=== PATIENT | male | born 1995 | race Caucasian/White ===

== ENCOUNTER 2019-08-19 18:18 | Emergency (ER) | payer OTHER, SELFPAY ==
[2019-08-19 18:19] VITALS: BP 166/96; PULSE 87; RESP 16; TEMP 36.6; O2SAT 98; BMI 30.7
--- NOTE | 2019-08-19 21:04 | CM.ED ---
Addendum entered by Keri Chacon 08/19/19 22:07: Reviewed and approved ASSOCIATION EXECUTIVE student documentation. Farhat Chacon ASSOCIATION EXECUTIVE, INTERNET MARKETING CONSULTANT Original Note: Social Work Consult: Anxiety Informant: Dr. Chacon Chief Complaint: Patient stating to feel anxious and may be addicted to Xanax. Patient inquiring about resources. Marital Status: Single. Living Situation: Patient stating to live on my own. Patient stating that patient's girlfriend lives with patient. Patient stating to feel safe at home with patient's girlfriend. Support/Resources: Patient stating to be able to tell patient's mother anything. Patient stating to call patient's mother when feeling anxious. Patient stating that patient's girlfriend is supportive. : None. Education/Employment History: Patient stating to be a full-time student and graduating college in January. 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 Patient denies any difficulty understanding and comprehending information. Mental Health Treatment: Patient stating to have gone through the detox program at [facility] where patient was diagnosed with anxiety. Patient stating to have finished [facility] detox program on 2018. Patient denying any inpatient psychiatric placement. Triggers/Stressors: Patient stating to believe patient might be addicted to Xanax. Patient appears worried that patient will go through withdraws from taking Xanax. Patient stating to feel it coming. This ASSOCIATION EXECUTIVE student asks patient to clarify feel it coming. Patient stating to feel like there will be a time when patient feels the withdraw symptoms coming on but the symptoms have not happened at this time. Patient stating to be stressed about school and worried about the unknown. Patient stating that the closer graduation comes the more anxious the patient gets because patient has to figure out life. Coping Skills: Patient stating to talk to mom, listen to music, play golf, hang out with friends and girlfriends, and play with the cat as coping skills to calm down. Abuse Issues: Patient denies. Substance Abuse: Patient reporting to use/abuse THC every day. Patient stating to have stopped using THC two days ago. Patient stating to use/abuse alcohol only on the weekends. Patient stating to never drink during the week days. Patient stating to drink 2-3 beers on the weekends. Patient denies any other substance abuse/use outside of THC and alcohol. Risk to Self/Others: Patient denies any risk to suicidal or homicidal thoughts/ideations. Patient denies any history of suicidal or homicidal thoughts/ideations. Patient denies any self harm behaviors. Mental Status Exam: A&Ox3 Appearance: Clean/Appropriate. Mood/Affect: Anxious. Communication Pattern: Responds to Questions. Thought Process: Appropriate. Judgement: Good. Assessment: Patient and patient's mother present in room. Introduced social media sr strategy manager role and self. Patient agreeable to talk to this ASSOCIATION EXECUTIVE student. Patient agreeable to have patient's mother in room during assessment. Patient stating to stress about being addicted to Xanax. Patient stating to have had a problem 1 year ago with being addicted to Xanax. Patient stating to have gone through a detox program at [facility]. Patient stating to not understand what anxiety looks like a year ago. Patient stating to be more aware of symptoms of anxiety and understands how anxiety may affect the patient. Patient stating to notice that patient was taking more Xanax then usual and was worried that patient might become addicted. Patient stating 3 months ago to feel anxious and did not want to take Xanax and flushed the rest of them down the toilet. Patient stating to have no accessibility to Xanax at this time. Broached the topic of counseling. Patient stating to not have a counselor at this time. Patient stating in the past to go to one counseling appointment and not go back. Patient stating to want to get help. This ASSOCIATION EXECUTIVE student provided patient with information about [facility] Behavioral Health Program, a list of counseling centers, and crisis hotline. Patient stating interest in the Behavioral Health Program and agreeable to attend an intake assessment on 08/20/2019 at 3:00 pm. This ASSOCIATION EXECUTIVE voiced concerns about being compliant with scheduled appointments. Patient is agreeable to attend appointments as advised and stating to I know that I need to get help and listen to the experts. Patient stating to be willing to do whatever it takes as long as I do not feel this way. Completed a safety plan to home. Educated patient on lethal means. Patient received original safety plan and a copy was placed on patient's chart. Broached the topic of transportation. Patient stating to have transportation to get to the Behavioral Health appointment. Patient appears to be goal oriented and forward thinking, graduating college. Active listening provided. Collaborating with Dr. Chacon. Agreeable to be discharged to home with resources and an intake appointment with Behavioral Health. Behavioral Health program aware of appointment time/date. Plan: Discharge to home with appointment with Behavioral Health tomorrow, 08/20/2019 at 3:00 pm. Nir Fuentes MSW student
--- NOTE | 2019-08-19 21:18 | ED.VISSUMM ---
- ER Visit Summary Date of Service: 08/19/19 Chief Complaint: Anxiety History of Present Illness: The patient is a [address] Salcedo. He reports that he has been using Xanax to help him sleep for the past few months. He states that he takes 1 mg every 2 days. His last dose was 48 hours ago. He does have a history of addiction to Xanax and that last time when he stopped he went through withdrawal and he is very nervous that he is going to have withdrawal again. Patient reports he has had 2 episodes of diarrhea today. His review of systems is otherwise negative. Physical Examination: Vitals: Stable. Afebrile. General: Well-nourished and well-developed. Head: Normocephalic atraumatic. Neck: Supple, no lymphadenopathy. No JVD. Nontender. Cardiovascular: Regular rate and rhythm. No murmurs. Respiratory: No respiratory distress. Clear to auscultation bilaterally. Abdominal: Soft, nontender, nondistended, normal bowel sounds. No guarding, rebound, or peritoneal signs. Back: Nontender. Extremities: Nontender, no edema. Skin: Normal color, no rash. Neurologic: Alert and oriented ?3. Cranial nerves II through XII are intact. Normal strength and sensation. Mental status exam: Patient appears their stated age. Good posture and grooming. Good eye contact. Normal rate, volume, and latency of speech. No suicidal or homicidal ideation. No auditory or visual hallucinations. Flow of thought is logical. Insight and judgment is fair. Emergency Department Course and Treatment: The patient did seem quite anxious while here. He had a prolonged discussion with case management and with myself. He was given 1 mg of Ativan p.o. Treatment Plan: Patient will be placed on Paxil. He is going to follow-up at behavioral health here at the hospital tomorrow. I had a prolonged discussion with him about coping mechanisms. Return to the emergency department for any worsening symptoms. Disposition: To home in improved and stable condition. Impression: 1. Anxiety. This note was generated with [employer] software. It may contain incorrect words, spelling, and punctuation that were not noted in review of the chart prior to signing ED Disposition - Plan for ED Patient: Disposition: Home or Assisted Living Instructions: Anxiety Reaction Prescriptions: Paroxetine [Paxil] 20 mg PO DAILY #30 tab Prescription Printed Referrals: Krystle Salcedo MD [Primary Care Provider] - Behavioral,Health [facility] [GROUP OF PHYSICIANS] - 1 Day for another exam
[2019-08-19] MEDS: LORazepam 1 MG Tablet PO (21:25)
== END 2019-08-19 21:27 | disposition home or self-care (01) ==
LOC: ED 19:33
PROVIDERS: Emergency Provider Emergency Medicine; PCP Family Medicine
DX: F41.9 Anxiety disorder, unspecified (principal); F98.8 Other specified behavioral and emotional disorders with onset usually occurring in childhood and adolescence
CPT/HCPCS: 99283